=== PATIENT | female | born 1980 | race Caucasian/White ===

== ENCOUNTER 2016-12-21 22:32 | Emergency (ER) | payer OTHER, MEDICAID ==
[2016-12-21 23:27] VITALS: BP 111/64
== END 2016-12-21 23:37 | disposition home or self-care (01) ==
LOC: ED 22:32
DX: T63.481A Toxic effect of venom of other arthropod, accidental (unintentional), initial encounter (principal); R21 Rash and other nonspecific skin eruption; J45.909 Unspecified asthma, uncomplicated; Z79.1 Long term (current) use of non-steroidal anti-inflammatories (NSAID); Z98.890 Other specified postprocedural states; Y92.89 Other specified places as the place of occurrence of the external cause